=== PATIENT | male | born 1965 | race Caucasian/White ===

== ENCOUNTER 2021-02-02 23:54 | Observation (INO) | payer BC ==
[~2021-02-02] VITALS: Ht 172.7 cm; Wt 147.0 kg
[2021-02-03] VITALS (13 sets, daily range): BP systolic 126–158; BP diastolic 75–107; PULSE 81–99; TEMP 97.6–98.9
[2021-02-03 00:34] LABS: BASO # 0.1 (0.0-0.2); BASO % 0.5 % (0.0-2.0); EOS # 0.3 (0.0-0.7); EOS % 2.5 % (0-4.0); GRAN # 5.7 (1.4-6.5); GRAN % 56.8 % (42.2-75.2); HEMATOCRIT 48.4 % (42.0-52.0); HEMOGLOBIN 16.4 g/dl (13.5-18.0); LYMPH % 29.7 % (20.0-51.0); MEAN CELL VOLUME 89 fl (80.0-100.0); MEAN CORPUSCULAR HEMOGLOBIN 30 pg (27.0-31.0); MEAN CORPUSCULAR HGB CONC 34 g/dl (33.0-37.0); MEAN PLATELET VOLUME 9.4 fl (7.4-10.4); MONO % 10.2 % (1.7-9.3); PLATELET COUNT 247 K/mm3 (130-400); RED BLOOD COUNT 5.46 M/mm3 (4.20-5.60); REDCELL DISTRIBUTION WIDTH-CV 12.4 % (11.5-14.5)
[2021-02-03 00:48] LABS: ALANINE AMINOTRANSFERASE 48 U/L (4-49); ALBUMIN 4.1 gm/dL (3.5-5.0); ALKALINE PHOSPHATASE 52 U/L (50-136); ANION GAP 10 mmol/L (7-16); AST,SGOT 48 U/L (15-37); BILIRUBIN,TOTAL 0.8 mg/dL (0.0-1.0); BLOOD UREA NITROGEN 18 mg/dL (9-20); CALCIUM 9.3 mg/dL (8.4-10.2); CARBON DIOXIDE 24 mmol/L (22-30); CHLORIDE 101 mmol/L (98-107); GLUCOSE 172 mg/dL (74-106); POTASSIUM 3.8 mmol/L (3.4-5.0); SODIUM 135 mmol/L (137-145); TOTAL PROTEIN 7.3 gm/dL (6.4-8.2)
[2021-02-03 00:57] LABS: C-REACTIVE PROTEIN 0.6 mg/dL (0.0-0.9)
[2021-02-03 01:01] LABS: TROPONIN-I < 0.012 ng/mL (0.000-0.035)
[2021-02-03] MEDS ORDERED: RYBELSUS7 MG PO (03:25)
[2021-02-03] MEDS ORDERED: LIPITOR 40MG TA40 MG PO (03:26)
[2021-02-03] MEDS ORDERED: COZAAR100 MG PO (03:26)
[2021-02-03 03:49] LABS: CHOLESTEROL RISK RATIO 4.6
[2021-02-03] MEDS ORDERED: GLUCOPHAGE500 MG/TAB PO (04:21)
[2021-02-03] MEDS ORDERED: ASPIRIN 81M81 MG/TA2 PO (04:23)
--- NOTE | 2021-02-03 05:11 | NUR ---
Received patient from ED. He is alert and oriented. He is independent. He has INT on right AC. He denies chest pain at this time. Instructed patient that he's NPO. Informed him of the procedures that he will have for this morning. [facility] reviewed and updated.
[2021-02-03 09:08] LABS: PROTHROMBIN TIME 11.4 SECONDS (9.7-12.8)
[2021-02-03 09:11] LABS: PARTIAL THROMBOPLASTIN TIME 25.2 SECONDS (26.0-37.0)
--- NOTE | 2021-02-03 09:30 | NUR ---
PT PLEASANT, DENIES CHEST PAIN OR SOB, VITALS TAKEN, MEDICATIONS GIVEN, PT AOX4, CONSENT OBTAINED FOR HEART CATH, PT EDUCATED ON TIME OF PROCEDURE AND THEN EDUCATED ON DELAY OF PROCEDURE, PT TOOK PILLS WITH SIP OF WATER BUT OTHERWISE NPO. NO OTHER NEEDS AT THIS TIME.
--- NOTE | 2021-02-03 10:08 | NUR ---
[employer] Specialist met with patient to discuss discharge planning. Patient lives in [place] with his , Jojo (ph#[phone]) and was here in town for business. Patient states he works for [employer]. Patient sees Dr. Roxana Wise for primary care and obtains medications from [facility] in [place] with no difficulties. Patient does not normally use any DME but reports he did use a walker for a short time after a fall a while back. Patient reports independence with ADLS and plans to return home upon discharge. Patient states his is on her way from [place] today. Patient does not have Advance Directives and was not interested in setting up DPOA-HC at this time. Patient to have heart cath today and will discharge possibly today vs tomorrow depending on the outcome. Discharge Plan: Home
--- NOTE | 2021-02-03 11:25 | NUR ---
First visit from the transcription typist. No needs right now.
--- NOTE | 2021-02-03 12:13 | NUR ---
PT TAKEN DOWN TO HEART CATH
--- NOTE | 2021-02-03 12:19 | NUR ---
SEE MERGE DOCUMENTATION FOR MEDICATION ADMINISTRATION TIMES AND INTRA/POST PROCEDURE SEDATION ASSESSMENTS.
--- NOTE | 2021-02-03 13:02 | NUR ---
PT RETURNED TO FLOOR, DENIES DISCOMFORT AT THIS TIME AND REPORTS DROWSINESS, POST OP VITALS ATTACHED TO PT, EDUCATED PT ABOUT S/S OF ACTIVE BLEEDING. EDUCATED ON DIET AND HOW TO CALL FOR A MEAL TRAY, 1/2NS INFUSING AT THIS TIME, AT BEDSIDE,NO OTHER NEEDS
[2021-02-03] MEDS ORDERED: NORVASC2.5 MG PO (16:19)
[2021-02-03] MEDS ORDERED: LIPITOR 80MG80 MG PO (16:19)
--- NOTE | 2021-02-03 17:09 | NUR ---
BAND COMPLETELY DEFLATED, WILL REMOVE AFTER 30MIN OF BEING DEFLATED, PT DENIES CHEST PAIN OR PAIN AT RADIAL SITE, RADIAL SITE SOFT W/O ERYTHEMA. PT PLEASANT, ON ROOM AIR, DISCHARGE PACKET BEING PRINTED, NO OTHER NEEDS
--- NOTE | 2021-02-03 18:03 | NUR ---
discharge education provided, iv removed, tr band removed, radial site soft to touch, not bleeding, escorted out with
== END 2021-02-03 18:07 | disposition home or self-care (01) ==
LOC: COL.ER 23:54 → MEDICAL 02-03 02:04
PROVIDERS: Nurse Practitioner; Student in an Organized Health Care Education/Training Program; ADMIT Internal Medicine
DX: R07.89 Other chest pain (principal); R00.2 Palpitations; I25.10 Atherosclerotic heart disease of native coronary artery without angina pectoris; E03.9 Hypothyroidism, unspecified; E11.9 Type 2 diabetes mellitus without complications; E78.5 Hyperlipidemia, unspecified; I10 Essential (primary) hypertension; Z20.822 Contact with and (suspected) exposure to COVID-19; Z79.82 Long term (current) use of aspirin; Z79.899 Other long term (current) drug therapy; Z79.4 Long term (current) use of insulin; Z79.891 Long term (current) use of opiate analgesic
CPT/HCPCS: C1769; G0378; J1644; J1650; J2250; J3010; J3475; J7030; Q9967